=== PATIENT | male | born 1990 | race Caucasian/White ===

== ENCOUNTER 2024-09-08 16:42 | Emergency (ER) | payer OTHER, SELFPAY ==
[2024-09-08 16:44] VITALS: BP 157/96
--- NOTE | 2024-09-08 19:53 | ED.GENMED ---
History of Present Illness
General
Chief Complaint: Male Genito-Urinary Symptoms
Time Seen by Provider: 09/08/24 17:41
History of Present Illness
History of Present Illness:
Note:
CHIEF COMPLAINT(S)
Left testicular pain and swelling.
HISTORY OF PRESENT ILLNESS
The patient is a 24-year-old male with no significant past medical history who presents with left testicular pain and swelling. Symptoms began a couple of days ago, with the worst episode occurring yesterday. The patient describes the pain as
similar to being 'kicked in the groin,' with radiation to the stomach. Today, the pain is less severe, though still present. The left testicle felt harder than the right. The patient denies any bulging suggestive of a hernia, which was also checked
at an urgent care where no inguinal hernia was observed. The patient reports normal urination without dysuria or hematuria and denies fever. Recent illness includes a sore throat, high fever, and vomiting, which subsided over the weekend, followed
by a rash with blisters on the hands and feet that appeared as the fever subsided. The rash is still present and was painful initially but now resolving. 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 The patient has a history
of alopecia areata, previously treated, and intermittent bleeding from scalp patches.
ADDITIONAL HISTORY OBTAINED FROM SOURCES OTHER THAN THE PATIENT
According to the patients spouse, the fever lasted from Thursday to Thursday evening, accompanied by significant sweating and a sore throat, which resolved over the weekend. The blisters appeared as the fever abated. son was also sick
PAST MEDICAL HISTORY
- Alopecia areata, intermittently treated.
- Possible psoriasis or similar dermatological condition.
SOCIAL HISTORY
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
- HEENT
Recent sore throat, no current symptoms.
- Constitutional: Fever and chills over the weekend, now resolved.
- Genitourinary: Left testicular pain and swelling, no dysuria or hematuria.
- Dermatological: Blisters on hands and feet post-fever.
PHYSICAL EXAM
- General: The patient is alert and in no respiratory distress.
- Genitourinary: Circumcised male with normal penile examination. Scrotum appears normal. No inguinal hernias noted. Slight tenderness in the left epididymal region. Normal cremasteric reflex bilaterally.
- Abdomen: Abdomen is not distended.
- Dermatological: Psoriatic changes noted on the knees bilaterally. A healing rash is also observed on the hands and feet.
PLAN
Order ultrasound to rule out testicular torsion and assess any other testicular abnormalities. Considering differential, if ultrasound findings are consistent with epididymitis, initiate tight scrotal support, NSAIDs such as ibuprofen, and ice
application for symptom management. Discuss potential initiation of antibiotics if no improvement or worsening of symptoms occurs.
DIFFERENTIAL DIAGNOSIS
The Differential Diagnosis includes, in no particular order and is not limited to:
1. Epididymitis
2. Testicular torsion
3. Inguinal hernia
4. Orchitis
5. Hand, foot, and mouth disease (related to the recent rash and fever)
6. Testicular tumor
7. Viral infection with post-infectious rash
8. Contact dermatitis
9. Scrotal edema secondary to trauma or infection
10. Psoriasis-related skin lesions
CARE-UPDATE
09/08/24 - 19:55
Radiologist confirms left epididymal orchitis.
Disposition:
SUMMARY OF ENCOUNTER
The patient is a 34-year-old male presenting with left testicular discomfort ongoing for several days.
DISPOSITION
The patient is okay for discharge.
ASSESSMENT
Left epididymal orchitis.
PLAN
Recommended tight scrotal support, NSAIDs, and follow-up as needed.
INDEPENDENT REVIEW OF LABS AND INTERPRETATION OF TESTS
My independent interpretation of the ultrasound is epididymitis with no evidence of testicular torsion.
MEDICATION RECONCILIATION
Prescriptions given include ceftriaxone and doxycycline.
MEDICAL DECISION MAKING
1. Number & Complexity of Problems: Acute epididymitis.
2. Data Reviewed: Ultrasound reviewed and discussed with radiology confirming no testicular torsion.
3. Risk: Consideration of higher-risk tests like ultrasound was made due to the need to rule out testicular torsion, but outpatient management is appropriate based on reassuring findings, stable appearance, and availability of close follow-up.
PATHOLOGIES TO CONSIDER
- Testicular torsion (ruled out with ultrasound)
- Epididymitis (confirmed)
Phy Exam
Physical Exam
Physical Exam:
.
Course
Orders/Labs/Results
Orders:
Orders
09/08/24 16:43
Scrotum US [US Scrotum] Urgent
Comment:
Reason For Exam: left testicle pain and swelling
09/08/24 19:52
Ceftriaxone Sodium [Rocephin] 500 mg IM NOW STA
Vital Signs
Initial and Last Documented VS:
Initial Vital Signs
Temp Pulse Resp BP Pulse Ox
98.2 F 80 18 157/96 100
09/08/24 16:44 09/08/24 16:44 09/08/24 16:44 09/08/24 16:44 09/08/24 16:44
Last Documented Vital Signs
Temp Pulse Resp BP Pulse Ox
98.2 F 80 18 157/96 100
09/08/24 16:44 09/08/24 16:44 09/08/24 16:44 09/08/24 16:44 09/08/24 16:44
*Pulse Oximetry
SaO2: 100
Oxygen Mode of Delivery: Room air
Patient hypoxic: no
*Critical Care Note
Total Time (30-74mins, 75-104mins- exclusive of procedures): Not Applicable
ED Attending Note
-
Portions of this chart may have been created with voice recognition software.� Occasional wrong word or��sound alike� substitutions may have occurred due to the inherent limitations of voice recognition software.
Discharge Plan
Departure
Patient Disposition: Home (Routine Discharge)
Date of Disposition: 09/08/24
Time of Disposition: 19:58
Patient with high blood pressure during this ER visit?: Yes
Discharge Problem:
Epididymitis
Instructions: Epididymitis and orchitis
Prescriptions:
New
doxycycline monohydrate 100 mg capsule
100 mg PO BID Qty: 20 0RF
Referrals:
Julio Rodriguez DO [Family Provider, [facility]]
Activity Restrictions/Additional Instructions:
Please see your doctor in the next 1 week for follow-up and reevaluation. If symptoms persist, outpatient follow-up with urology may be necessary. Please wear tight fitting underwear and scrotal support as discussed. Use ibuprofen as needed.
Return immediate for fevers, increased pain, increased swelling, difficulty urinating or any other concerns.
Interventions
Interventions:
*Risk Screen - Suicide Last Done: 09/08/24 16:44
*General Assessment Last Done: 09/08/24 16:44
*Neglect/Abuse Screening Last Done: 09/08/24 18:12
*ED- Fall Risk Assessment Last Done: 09/08/24 18:12
*ED COVID-19 Vaccine History Last Done: 09/08/24 18:12
Discharge Date and Time
Print Language: CHILEAN
[2024-09-08] MEDS: ROCEPHIN 500 MG IM (19:58)
[2024-09-08 20:06] VITALS: BP 136/98
== END 2024-09-08 20:07 | disposition home or self-care (01) ==
LOC: EMR 16:42
PROVIDERS: EMERGENCY PHYSICIAN Emergency Medicine; FAMILY PHYSICIAN Family Medicine
DX: N50.89 Other specified disorders of the male genital organs (principal)
CPT/HCPCS: 99284; 96372; 76870; 93976